=== PATIENT | male | born 1990 | race American Indian/Alaskan Native ===

== ENCOUNTER 2018-10-28 18:52 | Emergency (ER) | payer SELFPAY ==
[2018-10-28 19:17] VITALS: BP 139/79
[2018-10-28] MEDS ORDERED: BOOSTRIX IM ONE (21:10)
[2018-10-28] MEDS ORDERED: IBUPROFEN PO ONE (21:10)
--- NOTE | 2018-10-28 21:32 | Emergency Department Report ---
ED Laceration HPI - HPI Chief Complaint: Wound/Laceration Stated Complaint: RT HAND INJURY/PAIN Time Seen by Provider: 10/28/18 21:08 Occurred When: Today Location: Upper Extremity Tetanus Status: Not up to Date Laceration Symptoms: Yes Pain, No Foreign Body Sensation, No Numbness, No Weakness Other History: 27-year-old gentleman with no past medical history currently takes no medications and has no known drug allergies comes in stating that he cut his thumb with a broken glass 1 hour prior to arrival. Patient reports he is not up-to-date on his tetanus. ED Review of Systems ROS: Stated complaint: RT HAND INJURY/PAIN Other details as noted in HPI Comment: All other systems reviewed and negative Skin: other (cut to right thumb) ED Past Medical Hx - Past Medical History Previous Medical History?: No - Surgical History Past Surgical History?: No - Social History Smoking Status: Never Smoker Substance Use Type: None Laceration Physical Exam - Exam General: Vital signs noted. No distress. Alert and acting appropriately. Wound Length (cm): 2 (avulsion of skin to right thumb) Laceration Location: Upper Extremity Laceration Exam: Yes Normal Distal CMS, No Foreign Body, No Exposed Tendon, Vessel, or Nerve, No Tendon Injury ED Course Vital Signs 10/28/18 10/28/18 19:13 19:16 Temperature 98.3 F 98.3 F Pulse Rate 81 79 Respiratory 18 18 Rate Blood Pressure 139/79 139/79 O2 Sat by Pulse 100 100 Oximetry ED Medical Decision Making - Medical Decision Making H and has been evaluated by this provider [facility]. Patient comes in with the right hand avulsion of skin to the thumb. This provider gaze ibuprofen for pain management. Tetanus shot. Placed hemostat dressing with croup impression dressing to right thumb. Discussed the patient he can take [id number] Tylenol and/or Motrin for pain. Discussed the patient did not take the bandage off until tomorrow. Patient verbalized understanding. Critical care attestation.: If time is entered above; I have spent that time in minutes in the direct care of this critically ill patient, excluding procedure time. ED Disposition Clinical Impression: Abrasion of thumb, right Qualifiers: Encounter type: initial encounter Qualified Code(s): S60.311A - Abrasion of right thumb, initial encounter Disposition: TO HOME OR SELFCARE Is pt being admited?: No Does the pt Need Aspirin: No Condition: Stable Instructions: Abrasion (ED) Additional Instructions: Please keep wound clean and dry. Do not change bandage for 24 hours. Any signs of infection return back to the emergency room or primary care provider for reevaluation. Referrals: MECHELLE RODRIGUEZ MD [Primary Care Provider] - 3-5 Days
== END 2018-10-28 21:45 | disposition home or self-care (01) ==
LOC: ED 18:52
DX: S60.311A Abrasion of right thumb, initial encounter (principal); W25.XXXA Contact with sharp glass, initial encounter; Y93.89 Activity, other specified; Y92.89 Other specified places as the place of occurrence of the external cause; Y99.8 Other external cause status
CPT/HCPCS: 90471; 90715; 99282